=== PATIENT | male | born 1930 | race Caucasian/White ===

== ENCOUNTER → 2016-08-08 | Outpatient (CLI) | payer MEDICARE, BC ==
[~2016-08-08] MED LIST: ADULTS 50+ MUL1 EACH PO; CPAP INH; GLUCOSAMINE 1,1 EACH PO; RAZADYNE ER24 MG PO; SAW PALMETTO450 MG PO; TRAMADOL HCL50 MG PO; TYLENOL EXTRA500 MG PO; VITAMIN B-121000 MCG PO; VITAMIN D31000 UNI1 PO; ZOCOR80 MG PO
== END | disposition disaster alternative care site (69) ==
LOC: GRAD 14:43
DX: M25.512 Pain in left shoulder (principal); S46.012D Strain of muscle(s) and tendon(s) of the rotator cuff of left shoulder, subsequent encounter; S46.212D Strain of muscle, fascia and tendon of other parts of biceps, left arm, subsequent encounter; M19.012 Primary osteoarthritis, left shoulder; M25.412 Effusion, left shoulder; W19.XXXD Unspecified fall, subsequent encounter

== ENCOUNTER 2016-10-01 13:00 | Inpatient (IN) | payer MEDICARE, BC ==
[~2016-10-01] VITALS: Ht 175.3 cm; Wt 77.1 kg
--- NOTE | ~2016-10-01 | OR ---
PATIENT'S NAME: ADELAIDA PICHARDO [facility] AGE: 86 Y [address] ROOM: [place] [address] LOCATION: [facility] ADMIT DATE: 10/07/2016 OR/Procedure Report DISCHARGE DATE: FAMILY PHYSICIAN: Pat Tierney MD ATTENDING PHYSICIAN: KYLE COUGHLIN SURGEON: Kyle Coughlin MD SEED YEAST OPERATOR: DARIN Ramirez and Chris Graham PROOF COIN COLLECTOR/INTERNAL REVIEW AND AUDIT COMPLIANCE. DATE OF PROCEDURE: 10/07/2016 PREOPERATIVE DIAGNOSES: Left shoulder rotator cuff tear, left shoulder rotator cuff tendinosis, early left shoulder degenerative joint disease, early left shoulder rotator cuff arthropathy. POSTOPERATIVE DIAGNOSES: Left shoulder rotator cuff tear, left shoulder rotator cuff tendinosis, early left shoulder degenerative joint disease, early left shoulder rotator cuff arthropathy plus biceps tendinosis. PROCEDURE PERFORMED: Left reverse total shoulder arthroplasty and left biceps tenodesis. ANESTHESIA: General endotracheal anesthesia plus subcutaneous and periarticular local anesthesia (Exparel). ESTIMATED BLOOD LOSS: Approximately 100 mL. IMPLANTS: [employer] JuggerKnot suture anchor x1. Biomet comprehensive mini size 19 uncemented humeral component with modular comprehensive reverse total shoulder arthroplasty humeral tray and ArCom XL reverse total shoulder arthroplasty humeral tray insert. Uncemented glenoid base plate with 6.5 mm diameter central locking screw x1 and 4.75 mm peripheral locking screws x4. A 36 mm Glenosphere with offset adapter. COMPLICATIONS: None. INDICATION FOR PROCEDURE: Mr. Pichardo is an 86-year-old male, presenting with early rotator cuff arthropathy. MRI has demonstrated the presence of a large rotator cuff tear and poor rotator cuff tissue quality. Risks, benefits, limitations, and alternatives to this procedure have been thoroughly reviewed, and informed consent has been granted. Of note, the patient remains very pleased with the outcome of the contralateral total shoulder arthroplasty that we performed for him previously. We have discussed relative risks, benefits, limitations, and alternatives to nonoperative treatment, rotator cuff repair, and reverse total shoulder arthroplasty. Based upon his poor tissue quality, he has been informed that reverse total shoulder arthroplasty PATIENT'S NAME: ADELAIDA PICHARDO [facility] AGE: 86 Y [address] ROOM: [place] [address] LOCATION: [facility] ADMIT DATE: 10/07/2016 OR/Procedure Report DISCHARGE DATE: FAMILY PHYSICIAN: Pat Tierney MD ATTENDING PHYSICIAN: KYLE COUGHLIN offers him the most predictable positive outcome. We have reviewed risks and implications of infection, wear, loosening, instability, neurovascular complications, blood transfusion risks, and potential need for revision. Informed consent granted. DESCRIPTION OF PROCEDURE: The patient was placed in a modified beach-chair position after administration of general endotracheal anesthesia and prophylactic antibiotics. The left shoulder and left upper extremity were prepped and draped with vigilant sterile technique. Examination under anesthesia demonstrated passive forward elevation of 100 degrees and passive external rotation of 30 degrees. The left shoulder was approached through a standard deltopectoral incision. Subcutaneous tissues were infiltrated with Marcaine with epinephrine. The cephalic vein was identified, and the deltopectoral interval was bluntly developed. The cephalic vein was mobilized laterally with the deltoid. The axillary nerve was identified and was vigilantly protected throughout the entire case. The subscapularis tendon was intact, but attenuated. There was a full-thickness tear of the rotator cuff involving the majority of the supraspinatus and infraspinatus. The biceps tendon remained intact. The biceps tendon was released at the proximal margin of the intertubercular groove. The biceps tendon was released and was later tenodesed into the intertubercular groove using all 4 strands of a JuggerKnot suture anchor. There was high-grade partial-thickness articular cartilage loss involving a 2.5 x 3 cm region of the superomedial aspect of the humeral head. There was a small osteophyte at the inferior margin of the humeral head. Photographic documentation of the humeral head was obtained. The humeral head resection was performed with an oscillating saw. The humeral canal was reamed by hand to a size 13. The size 13 reamer engaged the endosteal cortex of the proximal humerus. The humerus was broached to a size 19. Circumferential glenoid exposure was obtained. Intraarticular remnants of the biceps tendon were excised together with degenerative remnants of the glenoid labrum. The glenoid face was reamed and the glenoid baseplate was impacted into position and obtained an excellent press fit. Supplemental fixation was obtained with 5 locking screws (all of which obtained good purchase. The final Glenosphere was impacted into position and obtained an excellent press fit. It should be noted that the entire incision and the entire joint space were thoroughly irrigated with bacteriostatic pulsatile saline lavage at this point as well as several times throughout the case. The final humeral component was impacted into position and obtained excellent axial and rotational stability. PATIENT'S NAME: ADELAIDA PICHARDO [facility] AGE: 86 Y [address] ROOM: [place] [address] LOCATION: [facility] ADMIT DATE: 10/07/2016 OR/Procedure Report DISCHARGE DATE: FAMILY PHYSICIAN: Pat Tierney MD ATTENDING PHYSICIAN: KYLE COUGHLIN Trial reductions were performed, and the above-specified construct restored appropriate soft tissue tension, range of motion, and stability. The final humeral tray and polyethylene insert were impacted into position. The subscapularis tendon was repaired with multiple [id number] interrupted #2 Orthocord sutures. Periarticular soft tissues were infiltrated with Exparel. The incision was closed with simple deep interrupted 0 Vicryl, followed by superficial buried interrupted 2-0 Vicryl, followed by a running subcuticular 3-0 Monocryl suture, followed by Dermabond, followed by Steri-Strips with benzoin. The dressing consisted of an occlusive Mepilex dressing. A shoulder immobilizer was placed, and the patient was extubated and transported to the post anesthesia care unit in stable, comfortable condition. MD LIANA DOMINGUEZ/nadial /[id number] d: 10/08/16 0106 t: 10/17/16 2222, OPERATIVE SUMMARY
--- NOTE | ~2016-10-01 | DS ---
PATIENT'S NAME: ADELAIDA PICHARDO [facility] AGE: 86 Y [address] ROOM: [id number] [place], [place] [address] LOCATION: [facility] ADMIT DATE: 10/07/2016 Discharge Summary DISCHARGE DATE: 10/09/2016 FAMILY PHYSICIAN: Pat Tierney MD ATTENDING PHYSICIAN: Kyle Coughlin PRIMARY DIAGNOSES: Left shoulder rotator cuff tear, left shoulder rotator cuff tendinosis, early left shoulder degenerative joint disease, early left shoulder rotator cuff arthropathy. SECONDARY DIAGNOSES: No significant secondary diagnoses. PROCEDURE PERFORMED: Left reverse total shoulder arthroplasty and left biceps tenodesis. HISTORY: The patient is an 86-year-old male, who presents with advanced left shoulder degenerative joint disease, pain, and weakness secondary to a non- repairable left shoulder rotator cuff tear. He also experiences associated severely compromised activities of daily living. He has decided to proceed with shoulder arthroplasty after having been thoroughly counseled regarding the risks, benefits, limitations, and alternatives. Please refer to his outpatient clinic notes, and his admission history and physical. HOSPITAL COURSE: The patient underwent the above specified procedure on 10/07/2016 without complications. General endotracheal anesthesia plus subcutaneous and periarticular local anesthesia was utilized. He received 24 hours of perioperative prophylactic antibiotics. He remained hemodynamically stable and neurovascularly intact throughout his entire hospital course. On his date of discharge, the incision at the shoulder was healing well and showed no signs of infection. DISPOSITION: Home. DISCHARGE DIET: Regular. DISCHARGE ACTIVITY: He is to remain in the sling multimedia assistant. He may perform gentle Codman's exercises as instructed 3 times daily. There is to be no dressing changes. He is to notify Dr. Coughlin immediately if he experiences any increased pain, fevers, chills, erythema, or drainage. DISCHARGE MEDICATIONS: Tylenol Extra Strength, take 1-2 tablets p.o. every 6 hours as needed for pain. FOLLOWUP: Followup appointment is to be with Dr. Coughlin one week subsequent to dismissal from the hospital for his initial postop evaluation with x-rays PATIENT'S NAME: ADELAIDA PICHARDO [facility] AGE: 86 Y [address] ROOM: [address] [place], [place] [address] LOCATION: [facility] ADMIT DATE: 10/07/2016 Discharge Summary DISCHARGE DATE: 10/09/2016 FAMILY PHYSICIAN: Pat Tierney MD ATTENDING PHYSICIAN: Kyle Coughlin of the shoulder at that time. DARIN HERNANDEZ FOR KYLE COUGHLIN MD TLB/modl /[id number] d: 10/16/16 0505 t: 10/18/16 1040, DISCHARGE SUMMARY
[~2016-10-01 13:00] MED LIST changes: -TRAMADOL HCL50 MG PO; -TYLENOL EXTRA500 MG PO
--- NOTE | 2016-10-07 17:51 | NUR ---
Significant Event: Pt up from PACU at 1630. VSS, CSM WNL. Mepilex dressing to left shoulder, C/D/I. Left arm in immobilizer, iced and elevated. Hx dementia, no issues noted this far. Weaned from 2L-1L O2. Able to make strong fist, wiggle fingers, denies numbness/tingling. Dilaudid 2 mg given at 1750 for anticipated pain. Received Ofirmev at 1651 in PACU. Foot pumps on. IVF continue. Taking PO well. Told him to eat light, he had general anesthesia. Uses IS as instructed, needs reminded. Pleasant and cooperative with cares. at bedside. 3rd half hour vital sign due at 1845. Next neuro check due at 1900. No void since OR Follow up:
--- NOTE | 2016-10-08 07:13 | NUR ---
Significant Event: Alert and oriented, forgetful. Hx dementia. Vital signs stable. On room air. Wears CPAP at HS. Encouraged IS use. Mepilex dressing to L shoulder is CDI. Ice applied. Sling on at all times. Up with 1 assist. Voiding without difficulty. LR @ 80 ml/hr. Family at bedside. High fall risk, multiple falls in the past. Dilaudid 2mg given X2 for pain and scheduled tylenol. Follow up: Possible discharge home today, though family expresses they would like to stay another night.
--- NOTE | 2016-10-08 10:10 | NUR ---
Introduced self/role to patient and his and daughter. Live in [place]. Denied any disharge needs. Plan is for home tomorrow. Added my name to his marker board, will continue follow.
--- NOTE | 2016-10-08 15:25 | NUR ---
PATIENT IN RECLINER, AMBULATED IN HALLWAYS. GAIT STEADY. MINIMAL PAIN. CSM ADEQUATE. HX OF DEMENTIA, FORGETFUL. PATIENT WILL GET UP ON OWN, REMIND OFTEN TO USE CALL LIGHT, TABS AND ALARM USED. VSS. MEPILEX DRESSING D/I TO LEFT ARM, ICE BAG USED FOR PAIN. SLING/IMMOBILIZER IN PLACE. PROBABLY HOME TOMORROW.
[2016-10-09] MEDS ORDERED: TYLENOL EXTRA500 MG PO (03:58)
[2016-10-09] MEDS ORDERED: TRAMADOL HCL50 MG PO (03:59)
--- NOTE | 2016-10-09 04:19 | NUR ---
Significant Event: Dressing is clean, dry and intact. CSM WNL. Disoriented to place and time. Impulsive. Will try to undo sling. Tylenol at 5. Dilaudid x1 at 1849. Bed alarm and tabs alarm. CPAP. Family at bedside. 1 assist with transfers. Voids. Follow up:
--- NOTE | 2016-10-09 11:10 | NUR ---
D: Patient dismissed to home with spouse assistance. Dressing dry and intact to lt shoulder. Immobilizer to lt shoulder. CSM WNL. Ambulates with one assist and gait belt. Gait steady. Taking analgesic prn for pain with relief. Patient forgetful. Dismissal instructions given to . Voices understanding of instructions. PAtient dismissed with dismissal instructions, rx and belongings.
== END 2016-10-09 11:10 | disposition disaster alternative care site (69) | DRG 483 ==
LOC: G3N 10-07 08:25
PROVIDERS: ADMIT Orthopaedic Surgery
PROC: 0RRK00Z Replacement of Left Shoulder Joint with Reverse Ball and Socket Synthetic Substitute, Open Approach (ICD-10-PCS; principal; 2016-10-07)
DX: M75.102 Unspecified rotator cuff tear or rupture of left shoulder, not specified as traumatic (principal); F03.90 Unspecified dementia, unspecified severity, without behavioral disturbance, psychotic disturbance, mood disturbance, and anxiety; M19.012 Primary osteoarthritis, left shoulder; E78.00 Pure hypercholesterolemia, unspecified; J30.9 Allergic rhinitis, unspecified; G47.30 Sleep apnea, unspecified; H53.2 Diplopia
CPT/HCPCS: C1713; C1776; C9290; J0131; J0171; J0690; J1100; J1170; J1885; J2250; J2405; J3010; J7120